=== PATIENT | female | born 1965 | race Caucasian/White ===

== ENCOUNTER 2021-08-25 20:59 | Emergency (ER) | payer BC ==
[2021-08-25 22:31] LABS: SARS-CoV-2 NAA Rapid Test DETECTED (NotDetected)
[2021-08-25 22:42] LABS: #Eosinphils 0.1 10x3/uL (0.0-0.5); #Monocytes 0.8 10x3/uL (0.0-1.1); #Neutrophils 4.2 10x3/uL (1.5-8.4); %Basophils 0.4 % (0.0-2.0); %Eosinophils 1.5 % (0.0-6.0); %Lymphocytes 7.1 % (18.0-47.0); %Monocytes 14.6 % (0.0-10.0); Hemoglobin 13.4 g/dL (12.0-15.5); Mean Corpuscular HGB CONC 32.6 g/dL (32.0-36.0); Mean Corpuscular Hemoglobin 32.2 pg (27.0-33.0); Mean Corpuscular Volume 98.8 fl (81.6-98.3); Mean Platelet Volume 9.7 fl (7.4-10.4); Platelet Count 178 10x3/uL (150-450); RBC Distribution Width 13.3 % (11.5-14.5); Red Blood Cell (RBC) Count 4.16 10x6/uL (3.90-5.03); White Blood Cell (WBC) Count 5.5 10x3/uL (3.5-10.5)
[2021-08-25] MEDS ORDERED: Ketorolac Tromethamine 30 MG/ML VIAL ONE (22:52)
[2021-08-25] MEDS ORDERED: Acetaminophen 500 MG TAB ONE (22:52)
[2021-08-25 22:56] LABS: Anion Gap 17 mmol/L (10-20); BUN (Urea Nitrogen) 12 mg/dL (9.8-20.1); Calc. Creatinine Clearance 0 mL/min (70-130); Calcium 9.4 mg/dL (7.8-10.44); Carbon Dioxide 22 mmol/L (22-29); Chloride 99 mmol/L (98-107); Glucose 81 mg/dL (70-105); Potassium 3.9 mmol/L (3.5-5.1); Sodium 134 mmol/L (136-145)
== END 2021-08-26 01:45 | disposition home or self-care (01) ==
LOC: CSHERS 20:59
DX: U07.1 COVID-19 (principal); M06.9 Rheumatoid arthritis, unspecified
CPT/HCPCS: 36415; 80048; 85025; 96374; J1885

== ENCOUNTER 2022-07-09 15:15 | Outpatient (CLI) | payer BC | END 2022-07-09 15:16 | disposition home or self-care (01) | LOC: CSHMAMMO 15:15 | PROVIDERS: ATTEND Obstetrics & Gynecology | DX: Z12.31 Encounter for screening mammogram for malignant neoplasm of breast (principal) | CPT/HCPCS: 77063; 77067 ==

== ENCOUNTER 2023-08-18 11:35 | Emergency (ER) | payer BC ==
[2023-08-18] MEDS ORDERED: fentaNYL 50 mcg/mL 1 mL Vial ONE (11:44)
[2023-08-18] MEDS ORDERED: HYDROmorphone 0.5 MG/0.5 ML SYRINGE ONE ×3 (11:55→16:13)
[2023-08-18] MEDS ORDERED: PROPOFOL 20 ML ONE ×2 (12:14→12:46)
[2023-08-18] MEDS ORDERED: Morphine 4 MG/ML VIAL ONE ×2 (13:20→17:58)
[2023-08-18] MEDS ORDERED: Ketamine 50 MG/ML (10ML VIAL) ONE (17:08)
== END 2023-08-18 18:49 | disposition short-term general hospital (02) ==
LOC: CSHERS 11:35
DX: S73.005A Unspecified dislocation of left hip, initial encounter (principal); Z55.6 Problems related to health literacy; W18.49XA Other slipping, tripping and stumbling without falling, initial encounter
CPT/HCPCS: 27265; 51702; 94760; 96361; 96374; 96375; 96376; 99152; J1170; J2270; J2704; J3010